=== PATIENT | male | born 1950 | race Caucasian/White ===

== ENCOUNTER 2017-02-03 16:49 | Outpatient (CLI) | payer OTHER | END 2017-02-03 16:50 | LOC: LABLEX 16:49 | PROVIDERS: ATTEND Family Medicine | DX: N49.2 Inflammatory disorders of scrotum (principal) | CPT/HCPCS: 87070; 87205 ==

== ENCOUNTER 2017-03-01 13:07 | Outpatient (CLI) | payer OTHER ==
[2017-03-01 13:51] LABS: Bilirubin Negative (Negative); Blood, Urine Negative (Negative); Clarity Slightly Cloudy (Clear); Glucose, Urine (Dipstick) Negative (Negative); Leukocyte Negative (Negative); Nitrite Negative (Negative); Protein, Urine (Dipstick) Negative (Neg-Trace); Specific Gravity, Urine 1.025 (1.005-1.030); Urobilinogen 0.2 mg/dL (0.2-1.0); pH, Urine 5.5 (5.0-9.0)
[2017-03-01 14:12] LABS: Bacteria/HPF Rare-Few HPF (None Seen); RBC/HPF 0-3 HPF (0-3); Squamous Epithelial 0-3 HPF (0-3); WBC/HPF 0-3 HPF (0-3)
== END 2017-03-01 13:08 | disposition home or self-care (01) ==
LOC: BURLAB 13:07
PROVIDERS: ATTEND Urology
DX: Z12.5 Encounter for screening for malignant neoplasm of prostate (principal); N49.2 Inflammatory disorders of scrotum; R35.0 Frequency of micturition
CPT/HCPCS: 36415; 81001; 87086; G0103

== ENCOUNTER 2017-03-30 19:52 | Emergency (ER) | payer OTHER ==
[2017-03-30] MEDS ORDERED: Clindamycin 150 MG CAP ONE (20:05)
== END 2017-03-30 20:19 | disposition home or self-care (01) ==
LOC: BURERS 19:52
DX: L03.115 Cellulitis of right lower limb (principal); L02.415 Cutaneous abscess of right lower limb; F17.210 Nicotine dependence, cigarettes, uncomplicated
CPT/HCPCS: 99283